=== PATIENT | female | born 1955 | race Caucasian/White ===

== ENCOUNTER → 2017-02-28 | Outpatient (CLI) | payer BC | LOC: MC.RAD 07:20 | DX: Z12.31 Encounter for screening mammogram for malignant neoplasm of breast (principal); Z90.12 Acquired absence of left breast and nipple | CPT/HCPCS: G0202 ==

== ENCOUNTER → 2018-03-13 | Outpatient (CLI) | payer BC | LOC: MC.RAD 13:20 | DX: Z12.31 Encounter for screening mammogram for malignant neoplasm of breast (principal); Z90.12 Acquired absence of left breast and nipple ==

== ENCOUNTER → 2019-03-27 | Outpatient (CLI) | payer BC | LOC: MC.RAD 07:00 | DX: Z12.31 Encounter for screening mammogram for malignant neoplasm of breast (principal) ==

== ENCOUNTER → 2020-04-01 | Outpatient (CLI) | payer BC | LOC: MC.RAD 17:14 | DX: Z12.31 Encounter for screening mammogram for malignant neoplasm of breast (principal); C50.212 Malignant neoplasm of upper-inner quadrant of left female breast; R92.2 Inconclusive mammogram; Z90.12 Acquired absence of left breast and nipple; Z17.0 Estrogen receptor positive status [ER+] ==

== ENCOUNTER → 2021-04-02 | Outpatient (CLI) | payer BC | LOC: MC.RAD 07:51 | DX: Z12.31 Encounter for screening mammogram for malignant neoplasm of breast (principal); Z90.12 Acquired absence of left breast and nipple ==

== ENCOUNTER → 2022-04-14 | Outpatient (CLI) | payer MEDICARE, BC | LOC: MC.RAD 13:07 | DX: Z12.31 Encounter for screening mammogram for malignant neoplasm of breast (principal) ==